=== PATIENT | female | born 2000 | race Caucasian/White ===

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

== ENCOUNTER 2022-05-20 05:43 | Emergency (ER) | payer MEDICAID ==
[~2022-05-20] VITALS: Ht 160 cm; Wt 59.0 kg
[~2022-05-20 05:43] MED LIST: IBUP-1968 PO
[2022-05-20 06:00] VITALS: BP_SYST 110
--- NOTE | 2022-05-20 06:00 | NUR ---
[facility] to ER [facility] Side rails up. Report given to Shy WHALEY(reg).
--- NOTE | 2022-05-20 06:04 | NUR ---
ERMD at bedside examining patient.
[2022-05-20] MEDS ORDERED: NACL 0.9% 1,000 ML IV ONE (06:15)
[2022-05-20] MEDS ORDERED: MORPHINE 4 MG INJ. 4 MG/ML VIAL IVP ONE (06:15)
[2022-05-20] MEDS ORDERED: ONDANSETRON HCL 4 MG/2 ML VIAL IVP ONE (06:15)
--- NOTE | 2022-05-20 06:15 | NUR ---
BIB FAM MEMBER C/O RIGHT UPPER ABD PAIN RADIATING TO THE BACK SINCE SUNDAY,+NAUSEA. LBM YESTERDAY. DENIES DYSURIA, VOMITING, DIARRHEA.
--- NOTE | 2022-05-20 06:30 | NUR ---
# 22 gauge angiocath placed to l ac. Use of asceptic technique. Opsite placed over site. Blood return noted. Blood for lab drawn from site. Flushed with 10 cc of normal saline. No evidence of infiltration noted. Patient tolerated well.
[2022-05-20 06:48] LABS: BASOPHILS % (AUTO) 0.3 % (0.0-2.0); EOSINOPHILS # (AUTO) 0.1 K/uL (0.0-0.4); EOSINOPHILS % (AUTO) 2.1 % (0.0-4.0); HEMATOCRIT 40.2 % (36-48); HEMOGLOBIN 14.1 g/dL (12.0-16.0); LYMPHOCYTES # (AUTO) 1.1 K/uL (1.0-5.5); LYMPHOCYTES % (AUTO) 23.5 % (20.5-51.5); MEAN CORPUSCULAR HEMOGLOBIN 32 pg (27-31); MEAN CORPUSCULAR HGB CONC 35 % (32-36); MEAN CORPUSCULAR VOLUME 91 fL (79.0-98.0); MONOCYTES # (AUTO) 0.7 K/uL (0.0-1.0); MONOCYTES % (AUTO) 14.3 % (1.7-9.3); NEUTROPHILS # (AUTO) 2.9 K/uL (1.8-7.7); NEUTROPHILS % (AUTO) 59.8 % (40.0-70.0); PLATELET COUNT (AUTO) 237 K/uL (130-430); WHITE BLOOD COUNT (AUTO) 4.9 K/uL (4.5-11.0)
[2022-05-20 07:10] LABS: BILIRUBIN,URINE NEGATIVE (NEGATIVE); BLOOD, URINE NEGATIVE (NEGATIVE); COLOR,URINE YELLOW (YELLOW); GLUCOSE,URINE NEGATIVE (NEGATIVE); KETONES,URINE NEGATIVE (NEGATIVE); LEUKOCYTE ESTERASE ,URINE TRACE (NEGATIVE); NITRITE, URINE NEGATIVE (NEGATIVE); PH,URINE 7.5 (5.0-8.0); PROTEIN URINE NEGATIVE (NEGATIVE); UROBILINOGEN,URINE 0.2 (0.2-1.0)
--- NOTE | 2022-05-20 07:12 | NUR ---
RECEIVED REPORT FROM JERALD AND WILL ASSUME CARE.
--- NOTE | 2022-05-20 07:12 | NUR ---
PT OFF UNIT FOR RADIOLOGY TESTING
[2022-05-20 07:16] LABS: ALBUMIN 3.8 g/dL (3.4-4.8); CALCIUM 8.8 mg/dL (8.4-11.0); CREATININE 0.64 mg/dL (0.55-1.30); TOTAL BILIRUBIN 0.3 mg/dL (0.0-1.0)
[2022-05-20 07:25] LABS: CLARITY/URINE SLIGHTLY HAZY (CLEAR)
[2022-05-20 07:41] LABS: BACTERIA,URINE FEW /HPF (None Seen); MUCUS,URINE 1+ /LPF (None Seen); RBC,URINE 0-3 /HPF (0-3); WBC,URINE 0-3 /HPF (0-3)
[2022-05-20] MEDS ORDERED: PANT20TA2 PO (07:51)
[2022-05-20 08:07] VITALS: BP_SYST 110
--- NOTE | 2022-05-20 08:08 | NUR ---
Patient given written and verbal discharge instructions and verbalizes understanding. ER MD discussed with patient the results and treatment provided. Patient in stable condition. ID arm band removed. IV catheter removed intact and dressing applied, no active bleeding. Rx of Protonix given. Patient educated on pain management and to follow up with PMD. Pain Scale 0/10 . Opportunity for questions provided and answered. Medication side effect fact sheet provided.
== END 2022-05-20 08:08 | disposition home or self-care (01) ==
LOC: SED 05:43
DX: K29.70 Gastritis, unspecified, without bleeding (principal); R10.11 Right upper quadrant pain; R11.2 Nausea with vomiting, unspecified; Z79.899 Other long term (current) drug therapy
CPT/HCPCS: 99284; 96374; 76700; 96361; 96375; 80053; 81000; 83690; 85025; 87086; 36415; 81025; J2405; J2270; J7030

== ENCOUNTER 2022-10-06 06:26 | Emergency (ER) | payer MEDICAID ==
[~2022-10-06] VITALS: Ht 160 cm; Wt 63.5 kg
[~2022-10-06 06:26] MED LIST changes: +PANT20TA2 PO
[2022-10-06 06:30] VITALS: BP_SYST 123
[2022-10-06] MEDS ORDERED: CLOT15CR5 TP (06:52)
[2022-10-06] MEDS ORDERED: PRED20TA PO (06:52)
== END 2022-10-06 07:06 | disposition home or self-care (01) ==
LOC: SED 06:26
DX: L30.9 Dermatitis, unspecified (principal); R21 Rash and other nonspecific skin eruption; Z79.899 Other long term (current) drug therapy
CPT/HCPCS: 99283

== ENCOUNTER 2024-01-08 21:05 | Emergency (ER) | payer SELFPAY ==
[~2024-01-08] VITALS: Ht 162.6 cm; Wt 57.6 kg
[~2024-01-08 21:05] MED LIST changes: +CLOT15CR5 TP; +PRED20TA PO
[2024-01-08 21:20] VITALS: BP_SYST 130; PULSE 73; RESP 19; TEMP 98.6; O2SAT 98
== END 2024-01-09 00:25 | disposition left against medical advice (07) ==
LOC: SED 21:05
DX: R00.2 Palpitations (principal); Z53.21 Procedure and treatment not carried out due to patient leaving prior to being seen by health care provider
CPT/HCPCS: 93005